=== PATIENT | male | born 1950 | race Caucasian/White ===

== ENCOUNTER 2020-11-17 08:25 | Outpatient (CLI) | payer MEDICARE, SELFPAY ==
--- NOTE | ~2020-11-17 | XR_ITS ---
XR chest 2V DATE: 11/17/2020 11:06 INDICATION: Prostate cancer TECHNIQUE: PA and lateral views COMPARISON: None FINDINGS: Normal heart size. Is aortic calcification and unfolding. No hilar or mediastinal enlargeme nt. No pulmonary infiltrate or consolidation, pleural effusion or pulmonary vascular congestion or pneumo thorax. There is mild loss of height and anterior wedging consistent with compression fracture deformity of T 10. Status post cholecystectomy. IMPRESSION: No active cardiopulmonary disease Status post cholecystectomy Mild anterior wedge compression fracture deformity of T10 Reviewed, dictated and finalized at location B.
--- NOTE | ~2020-11-17 | NM_ITS ---
EXAMINATION: NM bone scan whole body DATE: 11/17/2020 11:19 INDICATION: Prostate cancer TECHNIQUE: 24 mCi Tc-99m HDP was administered intravenously. Delayed whole-body scintigrams were obt ained. COMPARISON: Chest radiograph dated 11/17/[address] abdomen and pelvis also dated 11/17/2020 FINDINGS: Mild likely degenerative joint centered uptake at the bilateral shoulders, left wrist and elbow and b ilateral mid feet. No other suspicious bone lesions to suggest metastatic disease. IMPRESSION: 1. No evident metastatic disease. Reviewed, dictated and finalized at location A.
--- NOTE | ~2020-11-17 | CT_ITS ---
EXAMINATION: CT abdomen pelvis w con INDICATION: Prostate cancer TECHNIQUE: Computed tomographic images of the abdomen and pelvis were obtained after the administrati on of 100 cc of Omnipaque 350 intravenous contrast. The dose-length product (DLP) was 417.40 mGy-cm. Automated exposure control and iterative reconstruction technique were employed. COMPARISON: None available FINDINGS: Minimal dependent atelectasis is present in the lung bases. The heart size is normal. The g allbladder is surgically absent. The liver is diffusely low in attenuation when compared with the spl een, consistent with hepatic steatosis. Punctate calcifications in an otherwise normal spleen likely represent healed granulomatous disease. The pancreas, adrenal glands, and kidneys are normal. No path ologically enlarged abdominal or pelvic lymph nodes are identified. There is no free intraperitoneal gas or evidence of bowel obstruction. There is a fat-containing umbilical hernia. A Schmorl's node is noted in the superior endplate of L5. IMPRESSION: 1. No evidence of metastatic disease. Reviewed, dictated and finalized at location A.
[2020-11-17 08:58] LABS: Estimated Glomerular Filt Rate 60
== END 2020-11-17 08:26 | disposition home or self-care (01) ==
PROVIDERS: PCP Family Medicine; Visit Provider Urology
DX: C61 Malignant neoplasm of prostate (principal); Z90.49 Acquired absence of other specified parts of digestive tract; S22.070A Wedge compression fracture of T9-T10 vertebra, initial encounter for closed fracture; X58.XXXA Exposure to other specified factors, initial encounter
CPT/HCPCS: 71046; 74177; 78306; A9561; Q9967

== ENCOUNTER 2021-01-09 09:47 | Outpatient (CLI) | payer MEDICARE, SELFPAY ==
--- NOTE | 2021-01-09 10:25 | ECG_ITS ---
Measurements Intervals [place] Rate: 89 P: 14 FL: 158 QRS: 47 QRSD: 95 T: 69 QT: 346 QTc: 421 Interpretive Statements SINUS RHYTHM VOLTAGE CRITERIA FOR LVH BASELINE ARTIFACT- I, II, III, AVR, AVL, AVF BORDERLINE ECG Electronically Signed On 01-09-2021 10:43:17 [employer]EWARDESS SUPERVISOR by Lincoln Reyes D.O.
[2021-01-09 11:06] LABS: Basophils Absolute Auto 0.1 K/mm3 (0.0-0.1); Basophils Percent Auto 1.3 % (0.2-1.2); Eosinophils Absolute Auto 0.2 K/mm3 (0-0.3); Eosinophils Percent Auto 2.4 % (0-4.4); Hematocrit 48.1 % (42.0-52.0); Immature Granulocyte Absolute 0.03 K/mm3 (0.00-0.031); Immature Granulocyte Percent A 0.5 % (0-0.5); Lymphocytes Absolute Auto 1.63 K/mm3 (0.9-3.2); Lymphocytes Percent Auto 25.9 % (18.3-44.2); Mean Corpuscular HGB Conc 33.3 g/dl (32-36); Mean Corpuscular Hemoglobin 29.5 pg (26-34); Mean Corpuscular Volume 88.6 fl (80-100); Mean Platelet Volume 9.7 fl (7.4-10.4); Monocytes Absolute Auto 0.6 K/mm3 (0.1-0.6); Monocytes Percent Auto 9.4 % (2.6-8.5); Neutrophils Absolute Auto 3.8 K/mm3 (1.3-6.7); Neutrophils Percent Auto 60.5 % (45.5-73.1); Platelet Count Result 197 k/mm3 (150-375); Red Blood Count 5.43 M/mm3 (4.6-6.20); Red Cell Distribution Width 12.3 % (11.5-14.5); White Blood Count 6.3 K/mm3 (4.5-10.0)
[2021-01-09 11:07] LABS: Add Urine Microscopic? NO; Appearance Urine Clear (Clear); Bilirubin Urine Negative (Negative); Blood Urine Negative (Negative); Color Urine Yellow (Yellow); Glucose Urine UA Negative (Negative); Ketones Urine Negative (Negative); Leukocyte Esterase Ur Negative LEU/UL (Negative); Nitrate Urine Negative (Negative); Protein Urine Negative (Negative); Specific Grav Ur 1.023 (1.001-1.035); Urobilinogen Urine Negative mg/dL (<2.0)
[2021-01-09 11:16] LABS: INR 0.9; Prothrombin Time 12.3 Seconds (11.1-14.7)
[2021-01-09 11:17] LABS: Partial Thromboplastin Time 29.7 SECONDS (22.3-36.8)
[2021-01-09 12:47] LABS: Alanine Aminotransferase 63 U/L (4-50); Albumin Level 4.6 g/dL (3.5-5.1); Alkaline Phosphatase 60 U/L (38-126); Anion Gap 4 mmol/L (8-16); Aspartate Amino Transferase 43 U/L (17-59); Bilirubin,Total 0.5 mg/dL (0.2-1.3); Blood Urea Nitrogen 19 mg/dL (9-20); Calcium 9.8 mg/dL (8.4-10.2); Carbon Dioxide 35 mmol/L (22-30); Chloride 102 mmol/L (98-107); Estimated Glomerular Filt Rate 60; Glucose 119 mg/dL (65-110); Potassium 4.3 mmol/L (3.4-5.0); Sodium 141 mmol/L (137-145)
== END 2021-01-09 09:48 | disposition home or self-care (01) ==
LOC: ANHSURGERY 09:52
PROVIDERS: PCP Family Medicine; Visit Provider Urology
DX: Z01.818 Encounter for other preprocedural examination (principal); C61 Malignant neoplasm of prostate
CPT/HCPCS: 36415; 80053; 81003; 85025; 85610; 85730; 86850; 86900; 86901; 93005

== ENCOUNTER 2021-01-18 02:09 | Day surgery (SDC) | payer MEDICARE, SELFPAY ==
--- NOTE | 2021-01-08 12:42 | PM.IMHP ---
H&P: HPI History of Present Illness Date/Time: 01/08/21 12:42 Patient recently underwent evaluation for a PSA elevation to 5.9. Prostate ultrasound and biopsy revealed a 38 g prostate with adenocarcinoma in 7 of 12 cores. All cores on the left side were involved with 1 core on the right. [place] score ranges between 6 and 8. after discussion of therapeutic options including active surveillance, radiation therapy in its various forms and robotic prostatectomy he has elected for the latter. He is aware of the risk including, but not limited to, adverse cardiopulmonary events, rectal injury, erectile dysfunction and urinary incontinence. Chief Complaint: Prostate cancer Review of Systems Cardiovascular: Cardiovascular: Denies chest pain, Denies lightheadedness, Denies palpitations and Denies dyspnea Respiratory: Respiratory: Denies dyspnea Gastrointestinal: Gastrointestinal: Denies diarrhea, Denies nausea and Denies vomiting Genitourinary: Genitourinary: Denies hematuria and Denies dysuria Endocrine: Endocrine: Denies palpitations [facility] Social History Social History Smoking status: Never smoker Alcohol intake: never Exam Const: General: no acute distress Resp: Effort & Inspection: normal respiratory effort GI: Inspection: non-distended GI Palp: No abdominal tenderness and No Guarding due to palpation present (GI) Auscultation: normal bowel sounds Assessment and Plan Assessment and plan (1) Prostate cancer: Code(s): C61 - Malignant neoplasm of prostate Status: Acute Assessment and Plan: Robotic assisted radical prostatectomy with bilateral pelvic lymphadenectomy
--- NOTE | 2021-01-09 09:53 | PC.NURSE ---
Report to the Outpatient Waiting Room, entrance under the green pavilion located off [facility], at time _0600_ on date _01/18/21_. OR Time: _0730 AM_. - You and your visitor will be asked a series of questions to screen for COVID 19 for your protection. - A mask is required within the hospital. - Only one visitor is allowed at this time. Patient visitors will be guided where to wait when not with patient. Preoperative COVID Testing Requirements: No COVID Test needed if: (proof is required; if not received patient will have Rapid Test prior to entry) - Patient has received COVID Vaccine at least 14 days prior to procedure date or - Patient has positive COVID test result within last 90 days of surgery date. COVID Test needed if above criteria is not met If not COVID vaccinated a COVID test must be conducted within 72 hours of surgery and patient is asked to isolate self from time of testing until procedure. You will go to the [facility] for your COVID testing. The [facility] site is located at the corner of [address] [facility]. You will only be called if COVID results are positive and your surgeon may reschedule your elective surgery date. Patients may have clear liquids (water, carbonated beverages, clear teas, apple juice) until 3 hours prior to surgery (0430 AM) with a maximum of 20 ounces. - No food from midnight until time of surgery - Infants may have breast milk until 4 hours before surgery, infant formula 6 hours prior to surgery. - Children will be allowed to drink immediately following surgery. If applicable, please bring a bottle or sippy cup to assist with drinking. Juice, water, soda, and popsicles are readily available. For infants on formula, please bring formula the day of surgery. Pacifiers are allowed. Take the following medications with a SIP of water the morning of surgery: __NONE____ Medications to discontinue per physician ____NONE Date to take last dose Please no make-up, nail tamazight, hairspray, perfume, deodorant, or body powder the day of surgery. No jewelry (including any body piercings) or valuables the day of surgery, leave them at home. Please take a shower or bath the night before, or the morning of, surgery with an antibacterial soap. Wear comfortable, loose fitting clothing. Children are encouraged to wear pajamas. - Jewelry must be removed prior to entering the operating room. Rings and piercings that are not removed may be cut off. - The hospital will not accept responsibility for valuables. - Please leave all valuables, including medications, at home the day of surgery. If you are going home after surgery, a licensed security patrol driver must drive you home. - NO public transportation without another adult. - We recommend that an adult stay with you for 24 hours following discharge. - We also recommend that you do not drive, make important decision, drink alcoholic beverages, or take any drugs that were not prescribed by your health care provider for at least 24 hours after your discharge time. For Pediatric surgeries, we recommend two adults accompany the child home (only one inside the building at this time). Follow any additional instructions given to you from your surgeon. DIET/BOWEL PREP Telephone instructions given to __PT and asked if any additional questions and then verbalized understanding. Patient advised to call surgeon office or pre surgery nurse liaison [phone] if any additional questions.
[2021-01-09 10:06] VITALS: BP 144/88; PULSE 96; RESP 20; TEMP 36.8; O2SAT 96; BMI 27.9
--- NOTE | 2021-01-17 12:22 | WPDANESEPPF ---
Anes - Initial Pre Proc Eval Procedure: Operation Date: 01/18/21 07:30 Proposed Procedures p Robotic Assisted Laparoscopic Prostatectomy with Bilateral Pelvic Lymph Node Dissection - Yony Begum MD Date/Time: 01/17/21 12:22 Surgeon: Yony Begum MD Pre Op Diagnosis: Prostate CA Patient Data Age: 70 Gender: M Height: 1.65 m Weight: 76.2 kg Last Vital Signs Temp 36.8 C 01/09/21 10:06 Pulse 96 01/09/21 10:06 Resp 20 01/09/21 10:06 BP 144/88 H 01/09/21 10:06 Pulse Ox 96 01/09/21 10:06 Allergies Allergy/AdvReac Type Severity Reaction Status Date / Time No Known Allergies Allergy Verified 01/09/21 10:02 Home Medications Medication Instructions Recorded Confirmed Type carvedilol 6.25 mg HS 01/09/21 01/09/21 History ketorolac 1 drp TID 01/09/21 01/09/21 History nortriptyline 10 mg BID 01/09/21 01/09/21 History ofloxacin 1 drp TID 01/09/21 01/09/21 History pantoprazole 40 mg PO QAM 01/09/21 01/09/21 History prednisolone acetate 1 drp TID 01/09/21 01/09/21 History rosuvastatin 10 mg QAM 01/09/21 01/09/21 History Patient hx anesthesia problems: none Family hx anesthesia problems: none Results Review: All pre-operative results and documents have been reviewed as part of the pre-operative evaluation. [facility], [facility] Past Medical History Medical History (Updated 01/17/21 @ 09:37 by Kain Hinton DO) GERD (gastroesophageal reflux disease) Hyperlipidemia Hypertension PONV (postoperative nausea and vomiting) Prostate cancer Surgical History Surgical History (Updated 01/17/21 @ 09:37 by Kain Hinton DO) History of cholecystectomy Social History Social History Smoking status: Never smoker Second hand tobacco smoke exposure: No Alcohol intake: never Substance use: never Substance use type: does not use Living arrangements: with family Spiritual care concerns: No Anes - Eval Final PreProcedure Day of Procedure 01/17/21 12:22 Patient weight: overweight Heart: regular rate and rhythm Lungs: clear to auscultation and normal air movement Airway: Mallampati scale class 1 Neurological: alert and oriented Last oral intake: >/= 8 hours ASA classification: III Emergent: no Anesthetic plan: proceed Anesthesia type and monitoring: general ETT and standard monitoring Results Review: All pre-operative results and documents have been reviewed as part of the pre-operative evaluation. Informed Consent: The patient's anesthetic plan and its attendant risks and benefits were discussed with the patient/family/POA. Questions were solicited and answers provided to the satisfaction of the patient/family/POA.
[2021-01-18] VITALS (21 sets, daily range): BP systolic 118–155; BP diastolic 75–94; PULSE 88–109; RESP 12–20; TEMP 36.1–37.6; O2SAT 90–100
[2021-01-18] MEDS: LACTATED RINGERS 1,000 ML 30 ML IV CONT ×2 (06:25→10:50)
--- NOTE | 2021-01-18 06:30 | WPDHPUPDATE1 ---
History and Physical Update Update Date/Time: 01/18/21 06:30 History and Physical has been reviewed, including an updated exam of the patient. There are NO changes in the patient's condition. Risks, benefits, and alternatives have been discussed and questions answered. Patient agrees to proceed with procedure.
[2021-01-18] MEDS: ceFAZolin 2 GM/D5W 50 ML 2 GM/50 ML BAG IVPB (07:25)
--- NOTE | 2021-01-18 10:51 | W.PM.PROC2 ---
Procedure Note - Detailed Date of Procedure 01/18/21 Pre-op Diagnosis Prostate CA Post-op Diagnosis same Procedure Performed Robotic-assisted radical prostatectomy, bilateral pelvic lymphadenectomy. Surgeon Yony Begum MD Wafer Substrate Tester [facility] Low Anesthesia general Description of Procedure The patient was brought to the operative suite, where he was prepped and draped in routine sterile fashion while in a dorsal lithotomy, deep Trendelenburg position. A supraumbilical 10 mm trocar was placed after insufflation of the abdomen with a Veress needle. Three robotic ports were then placed under direct vision. Two of these were placed in the right lower quadrant - 10 cm and 20 cm lateral to, and in line with, the umbilicus. A third robotic trocar was placed 10 cm to the left of the umbilicus, and 20 cm to the left of the umbilicus, a 12 mm standard laparoscopic trocar was placed to be used as an assistant professor of criminal justice port. Lastly, a 5 mm trocar was placed in the left upper quadrant midway between the umbilicus and the left robotic trocar. Attention was then turned to the prostatectomy. I opted for a posterior approach in this patient. An incision was made in the parietal peritoneum along the posterior bladder/posterior prostate about 2 cm above the reflection of the peritoneum over the anterior rectum. The seminal vesicles and vas deferens were immediately identified. Dissection is undertaken in a fashion so as to avoid electrocautery as much as possible, particularly near the tips of the seminal vesicles. Dissection was also carried out in the midline so as to avoid any encounters with the ureters. The vas deferens and the seminal vesicles were dissected in their entirety to the base of the prostate. The plane anterior to Denoviller's fascia, anterior to the rectum and posterior to the prostate was then developed. I then dropped the bladder by incising the anterior parietal peritoneum just lateral to the median umbilical ligaments bilaterally. The bladder was dropped from the anterior abdominal and pelvic wall. The endopelvic fascia was identified and incised bilaterally, allowing for dissection of the posterior-lateral aspect of the prostate. The puboprostatic ligaments were transected near their origin from the posterior pubic ramus. This posterior lateral dissection of the prostate is also undertaken in a fashion so as to avoid electrocautery as much as possible. The dorsal vein of the penis is then secured with an 0 -Vicryl ligature. Attention is then turned to the bladder neck. The anterior bladder neck is incised at the vesico-prostatic junction. The previously placed urethral catheter was drawn through the urethrotomy. A very small bladder neck was maintained throughout the remainder of this dissection. The posterior bladder neck was incised in a fashion so as to avoid any injury to the ureteral orifices. Again, the small aperture of the bladder neck was maintained. The previously dissected vas deferens and the seminal vesicles were brought through the posterior bladder neck incision. The lateral prostatic pedicles were then carefully dissected from the lateral aspect of the prostate bilaterally. The prostatic pedicles were secured with Weck clips and transected. The neurovascular bundles were carefully dissected from the posterior-lateral aspect of the prostate. The dorsal vein of the penis was incised with electrocautery. Using cold scissors, the urethra was incised. After withdrawing the previously placed urethral catheter, the posterior urethra was sharply incised, as was the rectalurethralis muscle. Attention was then turned to an extended bilateral pelvic lymphadenectomy. The limits of this dissection were similar bilaterally. Specifically, the limits were the bifurcation of the common iliac vein proximally, the inguinal ligament distally, the obturator nerve posteriorly and the anterior aspect to the external iliac artery laterally. Th
[2021-01-18] MEDS: fentaNYL CITRATE INJ (*CRX) 100 MCG/2 ML VIAL 25 MCG IV PUSH ×4 (11:36→12:33)
--- NOTE | 2021-01-18 11:39 | SUR.PHASEI ---
PT ALERT TO SELF. SHAKES HEAD YES TO PAIN. TRYING TO GET UP OFF STRETCHER. ASKED PT IF HE NEEDS TO URINATE. PT SHAKES HEAD YES. ORIENTED PT TO SURGERY/PACU. EXPLAINED NORIEGA TO PT. FENTANYL GIVEN PRN.
--- NOTE | 2021-01-18 11:43 | SUR.PHASEI ---
DR JERRY AT BEDSIDE. ASSESSING NORIEGA. VERBAL ORDER FOR IV TYLENOL 1GM
--- NOTE | 2021-01-18 12:13 | SUR.PHASEI ---
PT HAVING SM AMT BLEEDING FROM PENIS AROUND NORIEGA. DRY WASHCLOTH OVER PENIS. PT GROGGY, SLEEPING IN INTERVALS. HOB REMAINS ELEVATED 30 DEGREES. IV TYLENOL INFUSING. PT HAS SM AMT ORBITAL AND SCLERAL EDEMA BILAT.
--- NOTE | 2021-01-18 12:37 | SUR.PHASEI ---
SAO2 89-91% ON ROOM AIR. RESP EVEN UNLABORED. P,W,D. HOB REMAINS AT 30 DEGREES. O2 2L NC APPLIED. PT SLEEPING IN INTERVALS. OCCASIONAL GRIMACE.
--- NOTE | 2021-01-18 12:46 | SUR.PHASEI ---
PT REMAINS A PACU PT, HOWEVER, DUE TO NO BED AVAILABILITY AT THIS TIME. PT MOVED TO [facility] STATION, PT CAN SEE FAMILY. [id number]
[2021-01-18] MEDS: oxyCODONE HCL (*CRX) 5 MG TAB IR PO (14:34)
--- NOTE | 2021-01-18 16:04 | PC.NURSE ---
This patient, Yadiel Guajardo, was admitted to 2 Medical Room 259-01. Patient/family oriented to hospital policies and general routines including ID bracelet, bed and alarms, visiting hours, pain management, procedures, bathroom and other care routines, personal items, smoking policy, room service/diet, and visiting hours. Information on how to activate the Rapid Response Team has been discussed. Patient/Family are encouraged to report perceived risks to care and to ask questions if they do not understand what they are told or what they should do.
[2021-01-18] MEDS: LACTATED RINGERS 1,000 ML 125 ML IV CONT (16:26)
[2021-01-18] MEDS: prednisoLONE ACETATE 1% OPHTH 5 ML 1 DROP EACH EYE (16:26)
[2021-01-18] MEDS: OFLOXACIN 0.3% OPHTH SOLN 5 ML BTL 1 DROP EACH EYE (16:26)
[2021-01-18] MEDS: KETOROLAC 0.5% OP SOLN 5 ML BOTTLE 1 DROP EACH EYE (16:26)
[2021-01-18] MEDS: carvediloL 6.25 MG TABLET BY MOUTH (22:32)
[2021-01-19 00:10] VITALS: BP 149/86; PULSE 107; RESP 18; TEMP 37.1; O2SAT 93
[2021-01-19] MEDS: LACTATED RINGERS 1,000 ML 125 ML IV CONT (00:48)
[2021-01-19 04:31] VITALS: BP 129/79; PULSE 100; RESP 20; TEMP 36.7; O2SAT 94
[2021-01-19 06:00] LABS: Hematocrit 41.3 % (42.0-52.0); Hemoglobin 13.3 g/dL (14.0-18.0)
[2021-01-19 06:12] LABS: Anion Gap 7 mmol/L (8-16); Blood Urea Nitrogen 19 mg/dL (9-20); Calcium 8.8 mg/dL (8.4-10.2); Carbon Dioxide 27 mmol/L (22-30); Chloride 102 mmol/L (98-107); Estimated CRCL calculation 43 ml/min; Estimated Glomerular Filt Rate 60; Glucose 135 mg/dL (65-110); Potassium 4.1 mmol/L (3.4-5.0); Sodium 136 mmol/L (137-145)
--- NOTE | 2021-01-19 07:48 | WPDUROPN2 ---
Progress Note: A&P Assessment and Plan (1) Prostate cancer: Code(s): C61 - Malignant neoplasm of prostate Status: Acute Assessment and Plan: Doing well POD #1 RALP Increase diet/ambulation this morning. Likely home this afternoon. Subjective Subjective Date/Time Seen: 01/19/21 07:48 Comfortable, tolerating diet Review of Systems Cardiovascular: Cardiovascular: Denies chest pain, Denies lightheadedness, Denies palpitations and Denies dyspnea Respiratory: Respiratory: Denies dyspnea Gastrointestinal: Gastrointestinal: Denies diarrhea, Denies nausea and Denies vomiting Genitourinary: Genitourinary: Denies hematuria and Denies dysuria Endocrine: Endocrine: Denies palpitations Exam Const: General: no acute distress Resp: Effort & Inspection: normal respiratory effort GI: Inspection: non-distended GI Palp: No abdominal tenderness and No Guarding due to palpation present (GI) Auscultation: normal bowel sounds Objective Data Vital Signs Vital Signs: Vital Signs - 24 hr 01/18/21 10:50 01/18/21 11:05 01/18/21 11:20 Temperature 97.4 F L Pulse Rate 95 100 88 Respiratory Rate 16 20 16 Blood Pressure 140/78 155/94 H 134/86 Pulse Oximetry 100 100 99 01/18/21 11:35 01/18/21 11:50 01/18/21 12:05 Temperature 97.8 F Pulse Rate 88 94 92 Respiratory Rate 16 14 12 Blood Pressure 135/86 132/82 125/81 Pulse Oximetry 100 95 93 01/18/21 12:20 01/18/21 12:35 01/18/21 12:50 Temperature Pulse Rate 90 90 96 Respiratory Rate 12 12 16 Blood Pressure 125/77 118/75 118/83 Pulse Oximetry 90 96 96 01/18/21 13:20 01/18/21 13:50 01/18/21 14:20 Temperature Pulse Rate 98 103 H 101 H Respiratory Rate 18 18 18 Blood Pressure 135/79 128/84 131/92 H Pulse Oximetry 97 96 97 01/18/21 14:50 01/18/21 15:10 01/18/21 15:25 Temperature 96.9 F L 97.3 F L Pulse Rate 106 H 100 98 Respiratory Rate 18 16 16 Blood Pressure 131/93 H 147/93 H 141/81 H Pulse Oximetry 98 96 01/18/21 15:55 01/18/21 16:55 01/18/21 20:17 Temperature 97.6 F 97.7 F 99.7 F H Pulse Rate 101 H 109 H 108 H Respiratory Rate 16 16 18 Blood Pressure 133/84 139/86 126/77 Pulse Oximetry 95 93 92 01/18/21 22:31 01/18/21 22:32 01/19/21 00:10 Temperature 98.3 F 98.8 F Pulse Rate 95 107 H Respiratory Rate 18 Blood Pressure 149/86 H Pulse Oximetry 93 01/19/21 04:31 Temperature 98.1 F Pulse Rate 100 Respiratory Rate 20 Blood Pressure 129/79 Pulse Oximetry 94 Intake/Output Intake/Output: Intake & Output 01/16/21 01/17/21 01/18/21 01/19/21 23:59 23:59 23:59 23:59 Intake Total 860 1320 Output Total 450 1600 Balance 410 -280 Meds/Results Medications: Active Medications Generic Name Dose Route Start Last Admin Trade Name Freq PRN Reason Stop Dose Admin Carvedilol 6.25 mg 01/18/21 21:00 01/18/21 22:32 Carvedilol 6.25 Mg Tablet BY MOUTH 6.25 mg HS DOLLY Administration Fentanyl Citrate 25 mcg 01/17/21 12:22 01/18/21 12:33 Fentanyl Citrate Inj (*Crx) 100 Mcg/2 Ml Vial IV PUSH 25 mcg Q2M PRN Administration Pain Hyoscyamine 0.125 mg 01/18/21 14:55 Hyoscyamine Sulfate 0.125 Mg Tablet SUBLINGUAL Q4H PRN Bladder Spasm Lactated Ringer's 1,000 mls @ 125 mls/hr 01/18/21 14:55 01/19/21 00:48 Lr - Lactated Ringers Iv IV CONT 125 mls/hr .Q8H DOLLY Administration Acetaminophen 1,000 mg in 100 mls @ 400 mls/hr 01/18/21 18:00 01/19/21 07:48 Ofirmev 1,000 Mg Ivpb IVPB 01/19/21 17:59 Infused Q6HR DOLLY Infusion Ketorolac Tromethamine 1 drop 01/18/21 15:50 01/19/21 04:24 Ketorolac 0.5% Op Soln 5 Ml Bottle EACH EYE Not Given Q8HR DOLLY Ketorolac Tromethamine 15 mg 01/19/21 06:56 Ketorolac 30 Mg/Ml Vial (*[facility]) IV PUSH 01/19/21 15:30 Q6H PRN Pain Rated 4-6 Levofloxacin 500 mg 01/19/21 09:00 Levofloxacin 500 Mg Tablet PO DAILY DOLLY Naloxone HCl 0.1 mg 01/18/21 14:55 Naloxone Hcl 0.4 Mg/Ml Vial
[2021-01-19 08:55] VITALS: BP 131/74; PULSE 93; RESP 18; TEMP 36.7; O2SAT 96
[2021-01-19] MEDS: PANTOPRAZOLE 40 MG TABLET PO (09:39)
[2021-01-19] MEDS: ROSUVASTATIN 10 MG TABLET BY MOUTH (09:39)
[2021-01-19] MEDS: levoFLOXacin 500 MG TABLET PO (09:39)
--- NOTE | 2021-01-19 12:30 | PM.DS ---
DS: Admitting Diagnosis Discharge Date 01/19/2021 @12:30pm Admitting Diagnosis Prostate cancer DS: Discharge Diagnosis Discharge Diagnosis (1) Prostate cancer: Code(s): C61 - Malignant neoplasm of prostate Status: Acute DS: Summary Hospital Course Hospital Course: This patient was admitted on the morning of his planned robotic prostatectomy. This procedure was uneventful, as was his postoperative course. By the evening of the procedure he was sitting at the bedside in tolerating a liquid diet. The following morning he was ambulating freely and tolerating regular food. His catheter drainage remained essentially clear throughout. His postoperative hemoglobin and serum creatinine were unremarkable. At the time of discharge he has been instructed in appropriate care for his Vitale catheter with both a leg bag and bedside bag. He will be discharged with plans to follow-up in 1 week with a cystogram. Time Spent with Patient Time attestation: Total time spent providing and/or coordinating discharge services: 15min. Exam Const: General: no acute distress Resp: Effort & Inspection: normal respiratory effort GI: Inspection: non-distended GI Palp: No abdominal tenderness and No Guarding due to palpation present (GI) Auscultation: normal bowel sounds DS: Data Data Completed and Pending Pending studies at discharge: Pending at discharge 01/18/21 09:00 Surgical [PTH] Routine Labs on day of discharge: Labs from last 24 hours 01/19/21 01/19/21 05:26 05:26 Hgb 13.3 L Hct 41.3 L Sodium 136 L Potassium 4.1 Chloride 102 Carbon Dioxide 27 Anion Gap 7 L BUN 19 Creatinine 1.20 Estim Creat Clear Calc 43 Estimated GFR 60 Glucose 135 H Calcium 8.8 Discharge Plan Discharge Patient Disposition: Home, Self-Care Discharge Instructions: 1) Vitale catheter -> leg bag / bedside bag at night. 2) No lifting/straining >15lbs. x3 weeks. 3) No driving x1-week. 4) Resume normal, pre-operative diet. 5) My office will contact regarding follow-up in 1-week with cystogram. Stand Alone Forms: General Discharge Instructions Discharge Orders: Discharge Order (Routine); Ordered 01/19/21 Ordered By: Yony Begum Discharge Medications: New hydrocodone-acetaminophen 5-325 mg tablet 1 - 2 tablet PO Q6H PRN (Reason: pain) Qty: 24 RF: 0 docusate sodium [Colace] 100 mg capsule 100 mg PO DAILY Qty: 30 RF: 0 hyoscyamine sulfate 0.125 mg tablet 0.125 mg PO Q6H PRN (Reason: bladder spasms) Qty: 20 RF: 2 sulfamethoxazole-trimethoprim 800-160 mg tablet 1 tablet PO Q12H Qty: 10 RF: 0 Continued carvedilol 6.25 mg tablet 6.25 mg HS RF: 0 ofloxacin 0.3 % drops 1 drp TID RF: 0 ketorolac 0.5 % drops 1 drp TID RF: 0 prednisolone acetate 1 % drops,suspension 1 drp TID RF: 0 pantoprazole 40 mg tablet,delayed release (DR/EC) 40 mg PO QAM RF: 0 nortriptyline 10 mg capsule 10 mg BID RF: 0 rosuvastatin 10 mg tablet 10 mg QAM RF: 0
[2021-01-19] MEDS: ONDANSETRON INJ 4 MG/2 ML VIAL IV PUSH (13:43)
--- NOTE | 2021-01-19 14:01 | PC.NURSE ---
patient agreeable to discharge. no pain at this time. did thorough education on bryant care and how to change from leg bag to overnight bag. both understood
== END 2021-01-19 14:13 | disposition home or self-care (01) ==
LOC: ANHSURGERY 05:53 → ANH2MED 15:36
PROVIDERS: PCP Family Medicine; Visit Provider Urology
PROC: 0VT04ZZ Resection of Prostate, Percutaneous Endoscopic Approach (ICD-10-PCS; CPT 55867; principal; 2021-01-18 07:30)
DX: C61 Malignant neoplasm of prostate (principal); I10 Essential (primary) hypertension; E78.5 Hyperlipidemia, unspecified; K21.9 Gastro-esophageal reflux disease without esophagitis
CPT/HCPCS: 55866; 38571; S2900; 36415; 80048; 80053; 81003; 85014; 85018; 85025; 85610; 85730; 86850; 86900; 86901; 88305; 88309; 93005; A9270; J0131; J0690; J1100; J1170; J2250; J2370; J2405; J2704; J2710; J3010; J7030; J7120

== ENCOUNTER 2021-01-26 10:56 | Outpatient (CLI) | payer MEDICARE, SELFPAY ==
--- NOTE | ~2021-01-26 | XR_ITS ---
EXAMINATION: XR cystogram DATE: 01/26/2021 11:37 INDICATION: Prostate cancer TECHNIQUE: Water-soluble contrast was gravity-infused through the patient's Vitale catheter. A laboratory analyst i mage was obtained. A postevacuation image is also obtained. Multiple fluoroscopic images were obtaine d during contrast infusion. Fluoroscopy exposure time was 0.9 minutes. The DAP for this procedure was 13.736 Gycm2. COMPARISON: None. FINDINGS: The overall contours bladder are normal. There are some areas of trabeculation in the bladd er wall. No bladder leak is identified. Phleboliths are noted in the pelvis. There is calcified ather osclerosis. IMPRESSION: 1. No evidence of bladder leak Reviewed, dictated and finalized at location A. 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
[2021-01-26 13:33] LABS: Basophils Absolute Auto 0.1 K/mm3 (0.0-0.1); Basophils Percent Auto 0.6 % (0.2-1.2); Eosinophils Absolute Auto 0.3 K/mm3 (0-0.3); Hematocrit 46.8 % (42.0-52.0); Hemoglobin 15.1 g/dL (14.0-18.0); Immature Granulocyte Absolute 0.04 K/mm3 (0.00-0.031); Immature Granulocyte Percent A 0.5 % (0-0.5); Lymphocytes Absolute Auto 0.74 K/mm3 (0.9-3.2); Lymphocytes Percent Auto 8.7 % (18.3-44.2); Mean Corpuscular HGB Conc 32.3 g/dl (32-36); Mean Corpuscular Hemoglobin 29.1 pg (26-34); Mean Corpuscular Volume 90.2 fl (80-100); Mean Platelet Volume 9.2 fl (7.4-10.4); Monocytes Absolute Auto 0.4 K/mm3 (0.1-0.6); Neutrophils Percent Auto 82.2 % (45.5-73.1); Platelet Count Result 271 k/mm3 (150-375); Red Blood Count 5.19 M/mm3 (4.6-6.20); Red Cell Distribution Width 12.8 % (11.5-14.5); White Blood Count 8.6 K/mm3 (4.5-10.0)
[2021-01-26 13:46] LABS: Anion Gap 14 mmol/L (8-16); Blood Urea Nitrogen 31 mg/dL (9-20); Calcium 9.5 mg/dL (8.4-10.2); Carbon Dioxide 26 mmol/L (22-30); Chloride 99 mmol/L (98-107); Estimated Glomerular Filt Rate 50; Glucose 165 mg/dL (65-110); Potassium 4.4 mmol/L (3.4-5.0); Sodium 139 mmol/L (137-145)
== END 2021-01-26 10:57 | disposition home or self-care (01) ==
PROVIDERS: PCP Family Medicine; Visit Provider Urology
DX: C61 Malignant neoplasm of prostate (principal)
CPT/HCPCS: 36415; 51600; 74430; 80048; 85025; Q9967

== ENCOUNTER → 2022-11-08 13:16 | Outpatient (CLI) | payer MEDICARE, SELFPAY ==
--- NOTE | ~2022-11-08 | MR_ITS ---
EXAMINATION: MR brain/brain stem wo/w con DATE: 11/08/2022 14:07 INDICATION: One year of memory loss. TECHNIQUE: Magnetic resonance imaging (MRI) of the brain and brainstem was performed without and with 15 mL Multihance intravenous contrast. Sequences included sagittal and axial T1-weighted SE, axial d iffusion-weighted FS SE, axial T2*-weighted GRE, axial T2-weighted FLAIR, and axial T2-weighted FSE. Postcontrast axial and coronal T1-weighted SE was obtained. Apparent diffusion coefficient (ADC) maps were created. COMPARISON: None. FINDINGS: There are no areas of restricted diffusion to suggest acute infarction. Small old lacunar infarct at junction of the right basal ganglia and the anterior margin of the right thalamus. No intracranial he morrhage or abnormal intracranial mass lesion. Moderate scattered areas of nonspecific increased T2-w eighted signal intensity in the cerebral white matter, predominantly involving the deep and periventr icular white matter which is within normal limits for age. There are no intraparenchymal signal abnor malities seen on the other pulse sequences. The ventricles are symmetric and normal in size. There ar e no abnormal extra-axial fluid collections. Flow voids are seen in the cerebral arteries on the T2-w eighted sequences consistent with their expected patency. Changes of bilateral intraocular lens repla cement. Mucosal thickening in the bilateral ethmoid sinuses. There are no areas of abnormal enhanceme nt on the post contrast images. IMPRESSION: 1. Small old lacunar infarct at the junction of the right basal ganglia and anterior right thalamus. 2. Moderate scattered nonspecific periventricular predominant white matter T2 hyperintensity which is within normal limits for age and likely sequela of chronic small vessel ischemic disease. Reviewed, dictated and finalized at location A. IMPRESSION: 1. Small old lacunar infarct at the junction of the right basal ganglia and ant erior right thalamus. 2. Moderate scattered nonspecific periventricular predominant white matter T2 h yperintensity which is within normal limits for age and likely sequela of chron ic small vessel ischemic disease.
== END ==
PROVIDERS: PCP Family Medicine; Visit Provider Family Medicine
DX: I71.20 Thoracic aortic aneurysm, without rupture, unspecified (principal); F03.90 Unspecified dementia, unspecified severity, without behavioral disturbance, psychotic disturbance, mood disturbance, and anxiety; E11.65 Type 2 diabetes mellitus with hyperglycemia; Z85.46 Personal history of malignant neoplasm of prostate; Z11.59 Encounter for screening for other viral diseases; Z12.11 Encounter for screening for malignant neoplasm of colon; R93.0 Abnormal findings on diagnostic imaging of skull and head, not elsewhere classified
CPT/HCPCS: 70553; A9577

== ENCOUNTER 2024-01-12 15:38 | Emergency (ER) | payer MEDICARE, SELFPAY ==
--- NOTE | ~2024-01-12 | XR_ITS ---
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 RESULT: Lines, tubes, and devices: None. Lungs and pleura: Rightward rotation. Otherwise clear. Cardiomediastinal silhouette: Stable. Other: No acute osseous or upper abdominal finding. IMPRESSION: No acute cardiopulmonary process. Reviewed, dictated and finalized at location K. O COMMUNICATIONS SUPERINTENDENT
[2024-01-12 15:43] VITALS: BP 122/68; PULSE 90; RESP 17; TEMP 36.8; O2SAT 96
--- NOTE | 2024-01-12 22:45 | ED_ITS ---
HPI - General Adult General Chief complaint: Unspecified Stated complaint: not eating Time Seen by Provider: 01/12/24 22:43 History of Present Illness HPI narrative: Patient is a 73-year-old male who presents to the emergency department this evening accompanied by his at due to concern for generalized weakness, lack of energy and loss of appetite. reports approximately 20 lb weight loss in the last 10 days. Patient himself denies any symptoms other than just feeling weak. He is currently denying any chest pain or shortness of breath, any nausea vomiting or abdominal pain. states that they did follow-up with the patient's primary care physician who prompted them to go to the emergency department for further workup. admits that they did go to a different emergency department few days ago, [place], and blood work and imaging results obtained revealed no acute process. No additional symptoms or concerns at this time. Related Data Home Medications Medication Instructions Recorded Confirmed carvedilol 6.25 mg tablet 6.25 mg HS 01/09/21 01/18/21 ketorolac 0.5 % eye drops 1 drp TID 01/09/21 01/18/21 nortriptyline 10 mg capsule 10 mg BID 01/09/21 01/18/21 ofloxacin 0.3 % eye drops 1 drp TID 01/09/21 01/18/21 pantoprazole 40 mg tablet,delayed 40 mg PO QAM 01/09/21 01/18/21 release prednisolone acetate 1 % eye 1 drp TID 01/09/21 01/18/21 drops,suspension rosuvastatin 10 mg tablet 10 mg QAM 01/09/21 01/18/21 Allergies Allergy/AdvReac Type Severity Reaction Status Date / Time No Known Allergies Allergy Verified 01/18/21 07:16 Review of Systems Review of Systems: All systems are reviewed and are negative unless stated otherwise in the HPI. [facility] Past Medical History Medical History GERD (gastroesophageal reflux disease) Hyperlipidemia Hypertension PONV (postoperative nausea and vomiting) Prostate cancer Surgical History Surgical History History of cholecystectomy Social History Social History Smoking status: Never smoker Second hand tobacco smoke exposure: No Alcohol intake: never Substance use: never Substance use type: does not use Living arrangements: with family Spiritual care concerns: No Exam Narrative: General: Alert, awake, afebrile, in no acute distress. HEENT: PERRL, no rhinorrhea, no post nasal drip, oropharynx clear. Neck: Trachea midline, no JVD, no lymphadenopathy. Cardiovascular: Regular rate and rhythm, no murmurs, rubs or gallops, no peripheral edema. Respiratory: Clear to auscultation bilaterally, no tachypnea, no wheezing, no rhonchi, no rubs, no respiratory distress. Abdomen: Soft, nontender, nondistended, no rebound, no guarding, no peritoneal signs. Musculoskeletal: No joint swelling or deformity, normal muscle tone. Skin: No rashes or petechia, no signs of infection. Psychiatric: Alert and oriented, normal behavior and judgment for situation. Neurological: Alert and oriented to person, place, and time. Follows all commands. No focal deficits, speech is clear and fluent. Course Vital Signs Vital signs: Vital Signs Temperature 98.3 F 01/12/24 15:43 Pulse Rate 90 01/12/24 15:43 Respiratory Rate 17 01/12/24 15:43 Blood Pressure 122/68 01/12/24 15:43 Pulse Oximetry 96 01/12/24 15:43 Temperature 98.3 F 01/12/24 15:43 Pulse Rate 98 01/12/24 23:21 Respiratory Rate 22 H 01/12/24 23:21 Blood Pressure 119/79 01/12/24 23:21 Pulse Oximetry 94 01/12/24 23:21 Medical Decision Making [facility] Narrative Medical decision making narrative: The patient was evaluated by myself in the emergency department. History is obtained from patient who is an independent historian and present at bedside and physical exam was performed. External medical records were reviewed at this time. IV was established and pertinent tests were ordered. Laboratory results obtained revealing no acute process. Urinalysis currently pending. Patient urinated shortly prior to arrival to the emergency department. Bladder scan obtained revealed less than 200 cc of urine. Imaging studies obtained included CXR which was independently interpreted by me revealing no acute cardiopulmonary process, which is pending final radiology interpretation. Differential diagnosis considerations include acute viral syndrome, dehydration, electrolyte derangements, infectious process such as pneumonia/UTI. Comorbidities impacting this visit include none. was informed that despite him not eating or drinking his blood work does not reveal any evidence of dehydration or acute kidney injury. Patient does appear to be getting enough oral hydration to prevent any dehydration, starvation ketosis. Was informed that patient can be followed as an outpatient by his primary care physician and both her and patient are agreeable with this plan. I have evaluated and discussed social determinants of health with the patient that could potentially impact subsequent diagnosis and treatment plans. On repeat assessment of the patient, reevaluation revealed that the patient is doing well and is in no acute distress. Patient symptoms have remained stable since he arrived to our emergency department. Repeat vital signs were all reviewed and noted to be stable. Differential diagnosis and treatment plan were discussed with the patient at bedside. Patient agrees with discussion and after shared medical decision making agrees with discharge. All questions were answered to the patient's satisfaction. Patient will follow up with his PCP in 3-5 days. Patient was provided with st rict return precautions and instructed to return to the emergency department if any new or worsening symptoms develop. The patient was discharged in stable condition. Vital Signs Vital Signs: Vital Signs Temperature 98.3 F 01/12/24 15:43 Pulse Rate 90 01/12/24 15:43 Respiratory Rate 17 01/12/24 15:43 Blood Pressure 122/68 01/12/24 15:43 Pulse Oximetry 96 01/12/24 15:43 Temperature 98.3 F 01/12/24 15:43 Pulse Rate 98 01/12/24 23:21 Respiratory Rate 22 H 01/12/24 23:21 Blood Pressure 119/79 01/12/24 23:21 Pulse Oximetry 94 01/12/24 23:21 Lab Data 01/12/24 23:19 01/12/24 23:19 Labs: Lab Results 01/12/24 Range/Units 23:19 WBC 8.4 (4.5-10.0) K/mm3 RBC 4.94 (4.6-6.20) M/mm3 Hgb 14.6 (14.0-18.0) g/dL Hct 43.6 (42.0-52.0) % MCV 88.3 (80-100) fl MCH 29.6 (26-34) pg MCHC 33.5 (32-36) g/dl RDW 13.2 (11.5-14.5) % Plt Count 227 (150-375) k/mm3 MPV 9.1 (7.4-10.4) fl Immature Gran % (Auto) 1.8 H (0-0.5) % Neut % (Auto) 65.5 (45.5-73.1) % Lymph % (Auto) 20.2 (18.3-44.2) % [place] % (Auto) 10.2 H (2.6-8.5) % Eos % (Auto) 1.7 (0-4.4) % Baso % (Auto) 0.6 (0.2-1.2) % Lymph # (Auto) 1.70 (0.9-3.2) K/mm3 [place] # (Auto) 0.9 H (0.1-0.6) K/mm3 Eos # (Auto) 0.1 (0-0.3) K/mm3 Baso # (Auto) 0.1 (0.0-0.1) K/mm3 Abs Immat Gran (auto) 0.15 H (0.00-0.031) K/mm3 Absolute Neuts (auto) 5.5 (1.3-6.7) K/mm3 Absolute Nucleated RBC 0.000 (0.0-0.012) K/mm3 Nucleated RBC % 0.0 (0.0-0.2) % Sodium 133 L (137-145) mmol/L Potassium 3.7 (3.4-5.0) mmol/L Chloride 99 (98-107) mmol/L Carbon Dioxide 27 (22-30) mmol/L Anion Gap 7 (4-12) mmol/L BUN 16 D (9-20) mg/dL Creatinine 1.20 (0.7-1.3) mg/dL Estim Creat Clear Calc 41 ml/min Estimated GFR 59 (59 - ) Glucose 144 H (65-110) mg/dL Calcium 8.7 (8.4-10.2) mg/dL Magnesium 2.2 (1.6-2.3) mg/dL Total Bilirubin 1.2 (0.2-1.3) mg/dL AST 42 (17-59) U/L ALT 40 (6-50) U/L Alkaline Phosphatase 90 (38-126) U/L Total Protein 8.0 (6.3-8.2) g/dL Albumin 4.1 (3.5-5.1) g/dL TSH (Reflex) 3.320 (0.465-4.68) uIU/mL Free T4 1.02 (0.78-2.19) ng/mL Thyroxine (T4) 10.30 (5.53-11.0) ug/dL Influenza A (RT-PCR) Negative (Negative) Influenza B (RT-PCR) Negative (Negative) SARS-CoV-2 RNA (RT-PCR) Negative (Negative) Discharge Plan Discharge Clinical Impression: Generalized weakness, Acute viral syndrome Patient Disposition: Home, Self-Care Condition: Stable Instructions: Antibiotic Form, Viral Syndrome (ED) Additional Instructions: Please follow-up with your family doctor within the next 3-5 days. Return to the emergency department if any new or worsening symptoms develop. Prescriptions: No Action carvedilol 6.25 mg tablet 6.25 mg HS ofloxacin 0.3 % drops 1 drp TID Rx Instructions: RT EYE ketorolac 0.5 % drops 1 drp TID Rx Instructions: RT EYE prednisolone acetate 1 % drops,suspension 1 drp TID Rx Instructions: RT EYE pantoprazole 40 mg tablet,delayed release (DR/EC) 40 mg PO QAM nortriptyline 10 mg capsule 10 mg BID rosuvastatin 10 mg tablet 10 mg QAM hydrocodone-acetaminophen 5-325 mg tablet 1 - 2 tablet PO Q6H PRN (Reason: pain) Qty: 24 0RF docusate sodium [Colace] 100 mg capsule 100 mg PO DAILY Qty: 30 0RF hyoscyamine sulfate 0.125 mg tablet 0.125 mg PO Q6H PRN (Reason: bladder spasms) Qty: 20 2RF sulfamethoxazole-trimethoprim 800-160 mg tablet 1 tablet PO Q12H Qty: 10 0RF Follow-up/Referrals: Calli Richards MD [Primary Care Provider] - 3 Days Time of Disposition: 03:47
[2024-01-12 23:20] VITALS: PULSE 97
[2024-01-12 23:21] VITALS: BP 119/79; PULSE 98; RESP 22; O2SAT 94
[2024-01-12 23:24] LABS: Basophils Absolute Auto 0.1 K/mm3 (0.0-0.1); Basophils Percent Auto 0.6 % (0.2-1.2); Eosinophils Absolute Auto 0.1 K/mm3 (0-0.3); Eosinophils Percent Auto 1.7 % (0-4.4); Hematocrit 43.6 % (42.0-52.0); Hemoglobin 14.6 g/dL (14.0-18.0); Immature Granulocyte Absolute 0.15 K/mm3 (0.00-0.031); Immature Granulocyte Percent A 1.8 % (0-0.5); Lymphocytes Percent Auto 20.2 % (18.3-44.2); Mean Corpuscular HGB Conc 33.5 g/dl (32-36); Mean Corpuscular Hemoglobin 29.6 pg (26-34); Mean Corpuscular Volume 88.3 fl (80-100); Mean Platelet Volume 9.1 fl (7.4-10.4); Monocytes Absolute Auto 0.9 K/mm3 (0.1-0.6); Monocytes Percent Auto 10.2 % (2.6-8.5); Neutrophils Absolute Auto 5.5 K/mm3 (1.3-6.7); Neutrophils Percent Auto 65.5 % (45.5-73.1); Platelet Count Result 227 k/mm3 (150-375); Red Blood Count 4.94 M/mm3 (4.6-6.20); Red Cell Distribution Width 13.2 % (11.5-14.5); White Blood Count 8.4 K/mm3 (4.5-10.0)
[2024-01-12 23:33] LABS: Alanine Aminotransferase 40 U/L (6-50); Albumin Level 4.1 g/dL (3.5-5.1); Alkaline Phosphatase 90 U/L (38-126); Anion Gap 7 mmol/L (4-12); Aspartate Amino Transferase 42 U/L (17-59); Bilirubin,Total 1.2 mg/dL (0.2-1.3); Blood Urea Nitrogen 16 mg/dL (9-20); Calcium 8.7 mg/dL (8.4-10.2); Carbon Dioxide 27 mmol/L (22-30); Chloride 99 mmol/L (98-107); Estimated CRCL calculation 41 ml/min; Estimated Glomerular Filt Rate 59; Glucose 144 mg/dL (65-110); Magnesium 2.2 mg/dL (1.6-2.3); Potassium 3.7 mmol/L (3.4-5.0); Sodium 133 mmol/L (137-145)
--- NOTE | 2024-01-12 23:50 | PC.NURSE ---
pt denied a urine sample at this time. pt stated give me 20 minutes
[2024-01-12 23:54] LABS: Free T4 Free Thyroxine 1.02 ng/mL (0.78-2.19)
[2024-01-13] LABS: Influenza A QL RT-PCR Negative (Negative); Influenza B QL RT-PCR Negative (Negative); SARS-CoV-2 RNA PCR Negative (Negative)
[2024-01-13] MEDS: SODIUM CHLORIDE 0.9% IV 1,000 ML 999 ML IV CONT ×2 (00:29→02:08)
--- NOTE | 2024-01-13 02:11 | PC.NURSE ---
bladder scan pt. pt has 243mL of urine in bladder. EDP made aware
[2024-01-13 05:08] VITALS: BP 117/82; PULSE 96; RESP 19; O2SAT 96
[2024-01-13 05:09] VITALS: BP 117/82; PULSE 96; RESP 19; O2SAT 98
== END 2024-01-13 05:11 | disposition home or self-care (01) ==
PROVIDERS: Emergency Provider Emergency Medicine; PCP Family Medicine
DX: B34.9 Viral infection, unspecified (principal); R53.1 Weakness; Z20.822 Contact with and (suspected) exposure to COVID-19; I10 Essential (primary) hypertension; E78.5 Hyperlipidemia, unspecified; K21.9 Gastro-esophageal reflux disease without esophagitis; Z85.46 Personal history of malignant neoplasm of prostate; Z90.49 Acquired absence of other specified parts of digestive tract; Z79.899 Other long term (current) drug therapy
CPT/HCPCS: 36415; 71045; 80053; 83735; 84436; 84439; 84443; 85025; 87636; 96360; 96361; 99284; J7030